=== PATIENT | female | born 1940 | race Caucasian/White ===

== ENCOUNTER 2019-01-22 12:03 | Emergency (ER) | payer MEDICARE, MEDICAID ==
[~2019-01-22] VITALS: Ht 152.4 cm; Wt 55.0 kg
[~2019-01-22 12:03] MED LIST: AMLO5TAB88 PO; B25; CETI10TA6; CRES10 PO; DOXA4TAB3 PO; HYDR25TA PO; HYDROCORTISONE; LOSA50TA41 PO; NEPHRO-VITE; NIFE60TA64 PO; OMEP20CA5 PO; POTA10CA42 PO; POTA10TA11 PO; ROSU20TA2 PO; TRIAMCINOLONE; WARF-67 PO; WARF1TAB46 PO; WARF2TAB57 PO; WARFARIN; [UNRECOGNIZED DRUG - OTHER]; amiodarone PO
[2019-01-22] MEDS ORDERED: HYDROCODONE/ACETAMINOPHEN 5/325MG TABLET PO ONE (12:45)
[2019-01-22] MEDS ORDERED: NAPROXEN 375MG TABLET PO ONE (12:45)
[2019-01-22 13:02] LABS: HEMATOCRIT. 41.4 % (36.0-48.0); MEAN CORPUSCULAR VOLUME 88.7 fL (81.0-99.0); MEAN PLATELET VOLUME 8.2 fl (7.4-10.4); PLATELET 180 x1000/uL (130-400); RED BLOOD CELL COUNT 4.67 mill/uL (4.2-5.4); RED CELL DISTRIBUTION WIDTH 14.1 % (11.6-14.6)
[2019-01-22 13:09] LABS: CHLORIDE 108 mEq/L (98-107)
[2019-01-22 13:17] LABS: INR 1.3; PARTIAL THROMBOPLASTIN TIME 34.8 sec (23.4-31.0)
[2019-01-22 13:26] LABS: ATYPICAL LYMPHOCYTES 1
[2019-01-22 13:27] LABS: PLATELET ESTIMATE NORMAL
[2019-01-22 15:29] VITALS: BP 151/93
== END 2019-01-22 15:31 | disposition home or self-care (01) ==
LOC: ER 12:03 → MERGE 12:03 → ER 15:31
DX: S16.1XXA Strain of muscle, fascia and tendon at neck level, initial encounter (principal); M79.18 Myalgia, other site; I11.9 Hypertensive heart disease without heart failure; E78.00 Pure hypercholesterolemia, unspecified; X58.XXXA Exposure to other specified factors, initial encounter; Y93.89 Activity, other specified; Y92.9 Unspecified place or not applicable; Z88.6 Allergy status to analgesic agent; Z95.0 Presence of cardiac pacemaker; Z79.01 Long term (current) use of anticoagulants
CPT/HCPCS: 36415; 99283

== ENCOUNTER 2019-02-14 14:38 | Emergency (ER) | payer MEDICARE, MEDICAID ==
[~2019-02-14] VITALS: Ht 152.4 cm; Wt 45.0 kg
[2019-02-14] MEDS ORDERED: SODIUM CHLORIDE 0.9% 1000ML BAG (SEPSIS BOLUS) IV ONE (17:15)
[2019-02-14 17:35] LABS: HEMOGLOBIN. 15.1 g/dL (12.0-16.0); MEAN CORPUSCULAR HEMOGLOBIN 29.6 pg (28.0-32.0); MEAN CORPUSCULAR VOLUME 88.3 fL (81.0-99.0); MEAN PLATELET VOLUME 8.9 fl (7.4-10.4); PLATELET 170 x1000/uL (130-400); RED BLOOD CELL COUNT 5.09 mill/uL (4.2-5.4); RED CELL DISTRIBUTION WIDTH 14.5 % (11.6-14.6)
[2019-02-14 17:37] LABS: CHLORIDE 105 mEq/L (98-107)
[2019-02-14 17:45] LABS: INR 3.5; PROTHROMBIN TIME 33.7 sec (9.6-11.0)
[2019-02-14 18:03] LABS: PLATELET ESTIMATE NORMAL
[2019-02-14 18:25] LABS: CLARITY URINE CLEAR (CLEAR); COLOR URINE YELLOW (YELLOW); KETONES URINE NEGATIVE (NEGATIVE); LEUKOCYTE ESTERASE URINE 2+ (NEGATIVE); NITRITE URINE NEGATIVE (NEGATIVE); OCCULT BLOOD URINE NEGATIVE (NEGATIVE); PH URINE 5.5 (4.5-8.0); PROTEIN URINE NEGATIVE (NEGATIVE); SPECIFIC GRAVITY URINE 1.008 (1.005-1.030); UROBILINOGEN URINE 0.2 E.U./dL (0.2-1.0)
[2019-02-14] MEDS ORDERED: ACETAMINOPHEN 500MG TABLET PO ONE (19:30)
[2019-02-14 21:05] VITALS: BP 150/84
== END 2019-02-14 21:17 | disposition home or self-care (01) ==
LOC: ER 14:38
DX: R05 Cough (principal); J02.9 Acute pharyngitis, unspecified; R50.9 Fever, unspecified; E78.00 Pure hypercholesterolemia, unspecified; I10 Essential (primary) hypertension; Z95.0 Presence of cardiac pacemaker; Z98.890 Other specified postprocedural states; Z79.899 Other long term (current) drug therapy; Z88.6 Allergy status to analgesic agent
CPT/HCPCS: 36415; 71045; 80053; 81003; 83605; 84145; 84484; 85025; 85610; 85730; 87040; 87077; 87086; 93005; 99284; J7030; J7040

== ENCOUNTER 2019-04-15 10:35 | Inpatient (IN) | payer MEDICARE, MEDICAID ==
[~2019-04-15] VITALS: Ht 134.6 cm; Wt 47.7 kg
[~2019-04-15 10:35] MED LIST changes: +OMEP20CA14 PO; -OMEP20CA5 PO
[2019-04-15] MEDS ORDERED: SODIUM CHLORIDE 0.9% 1,000 ML IV ONE (15:55)
[2019-04-15] MEDS ORDERED: LIDOCAINE HCL/PF 1% 10 MG/ML 5ML VIAL IJ ONE (16:15)
[2019-04-15] MEDS ORDERED: MORPHINE SULFATE 2 MG/ML CPJ (NOT FOR IM USE) IV ONE (16:15)
[2019-04-15 16:43] LABS: BASOPHILS % 0.5 % (0.0-2.0); EOSINOPHILS % 0.4 % (0.0-5.0); HEMATOCRIT. 40.9 % (36.0-48.0); HEMOGLOBIN. 13.9 g/dL (12.0-16.0); LYMPHOCYTES % 9.2 % (20.0-50.0); MEAN CORPUSCULAR VOLUME 88.1 fL (81.0-99.0); MEAN PLATELET VOLUME 8.5 fl (7.4-10.4); MONOCYTES % 13.4 % (2.0-8.0); NEUTROPHILS % 76.5 % (40.0-76.0); PLATELET 180 x1000/uL (130-400); RED BLOOD CELL COUNT 4.64 mill/uL (4.2-5.4); RED CELL DISTRIBUTION WIDTH 15.3 % (11.6-14.6)
[2019-04-15 16:46] LABS: CHLORIDE 108 mEq/L (98-107)
[2019-04-15 16:48] LABS: INR 2.2; PROTHROMBIN TIME 21.5 sec (9.6-11.0)
[2019-04-15] MEDS ORDERED: VANCOMYCIN 1 G PREMIX 200 ML IV ONE (17:00)
[2019-04-15] MEDS ORDERED: CEFEPIME 2,000 MG in DEXT 5% WATER 100 ML IV ONE (17:00)
[2019-04-15] MEDS ORDERED: ACETAMINOPHEN 325MG TABLET PO ONE (17:15)
[2019-04-15 18:20] LABS: CLARITY URINE CLEAR (CLEAR); COLOR URINE DARK YELLOW (YELLOW); KETONES URINE NEGATIVE (NEGATIVE); LEUKOCYTE ESTERASE URINE NEGATIVE (NEGATIVE); NITRITE URINE NEGATIVE (NEGATIVE); OCCULT BLOOD URINE TRACE (NEGATIVE); PH URINE 5.5 (4.5-8.0); PROTEIN URINE NEGATIVE (NEGATIVE); SPECIFIC GRAVITY URINE 1.021 (1.005-1.030)
[2019-04-15] MEDS ORDERED: ONDANSETRON HCL 4MG/2ML INJ IV PRN (19:30)
[2019-04-15] MEDS ORDERED: MAGNESIUM HYDROXIDE 400MG/5ML 30ML UDC PO PRN (19:30)
[2019-04-15] MEDS ORDERED: MAGNESIUM/ALUMINUM HYDROXIDE/SIMETHICONE 30ML UDC PO PRN (19:30)
[2019-04-15] MEDS ORDERED: DIPHENHYDRAMINE 50MG/ML VIAL IV PRN (19:30)
[2019-04-15] MEDS ORDERED: HYDROCODONE/ACETAMINOPHEN 5/325MG TABLET PO PRN (19:30)
[2019-04-15] MEDS ORDERED: POTASSIUM CHLORIDE 20MEQ TABLET SR PO ONE (19:30)
[2019-04-15] MEDS ORDERED: CLONIDINE 0.1MG TABLET PO PRN (19:30)
[2019-04-15] MEDS ORDERED: GUAIFENESIN 200MG/10ML SUGAR FREE UDC PO PRN (19:30)
[2019-04-15] MEDS ORDERED: VANCOMYCIN 1 G PREMIX 200 ML IV NR (19:30)
[2019-04-15] MEDS ORDERED: ACETAMINOPHEN 325MG TABLET PO PRN (19:30)
[2019-04-15] MEDS ORDERED: MVI, ADULT NO.1 10 ML, FOLIC ACID 1 MG, THIAMINE HCL 100 MG in SODIUM CHLORIDE 0.9% 1,0... IV SCH ×4 (20:00)
[2019-04-15 23:35] VITALS: BP 135/37
[2019-04-16] VITALS: BP 135/37
[2019-04-16] MEDS ORDERED: WARFARIN SODIUM 1MG TABLET PO NR (02:00)
[2019-04-16 04:00] VITALS: BP 108/42
[2019-04-16] MEDS: OMEPRAZOLE 20MG CAPSULE EXTENDED RELEASE PO SCH (06:11)
[2019-04-16 06:41] LABS: INR 1.8; PROTHROMBIN TIME 18.1 sec (9.6-11.0)
[2019-04-16 06:51] LABS: HEMATOCRIT. 36.9 % (36.0-48.0); HEMOGLOBIN. 12.3 g/dL (12.0-16.0); MEAN CORPUSCULAR HEMOGLOBIN 29.7 pg (28.0-32.0); MEAN CORPUSCULAR VOLUME 89.3 fL (81.0-99.0); MEAN PLATELET VOLUME 8.9 fl (7.4-10.4); PLATELET 156 x1000/uL (130-400); RED BLOOD CELL COUNT 4.14 mill/uL (4.2-5.4); RED CELL DISTRIBUTION WIDTH 15.5 % (11.6-14.6)
[2019-04-16 08:00] VITALS: BP 142/59
[2019-04-16 08:04] LABS: CHLORIDE 116 mEq/L (98-107)
[2019-04-16] MEDS ORDERED: DOXA4TAB3 MT (08:27)
[2019-04-16] MEDS ORDERED: FOLI-43 MT (08:28)
[2019-04-16] MEDS: LOSARTAN POTASSIUM 50 MG TABLET PO SCH (09:19)
[2019-04-16 12:00] VITALS: BP_SYST 102; BP_SYST 148; BP_DIAS 58; BP_DIAS 60
[2019-04-16 14:44] LABS: PLATELET ESTIMATE NORMAL
[2019-04-16] MEDS ORDERED: MAGNESIUM 1 G PREMIX 100 ML IV SCH (15:00)
[2019-04-16 16:00] VITALS: BP 131/52
[2019-04-16] MEDS ORDERED: WARFARIN SODIUM 1MG TABLET PO SCH (18:00)
[2019-04-16 20:25] VITALS: BP 136/71
[2019-04-17] VITALS: BP 144/46
[2019-04-17 04:00] VITALS: BP 146/63
[2019-04-17] MEDS ORDERED: SODIUM CHLORIDE 0.9% INJ 3ML FLUSH IVF SCH (06:00)
[2019-04-17] MEDS: OMEPRAZOLE 20MG CAPSULE EXTENDED RELEASE PO SCH (06:17)
[2019-04-17 06:56] LABS: INR 1.6; PROTHROMBIN TIME 16.1 sec (9.6-11.0)
[2019-04-17 08:00] VITALS: BP 133/40
[2019-04-17] MEDS: LOSARTAN POTASSIUM 50 MG TABLET PO SCH (08:09)
[2019-04-17 12:27] VITALS: BP 136/50
[2019-04-17 13:47] VITALS: BP 136/50
[2019-04-17] MEDS ORDERED: WARFARIN SODIUM 3MG TABLET PO NR (18:00)
== END 2019-04-17 14:20 | disposition home or self-care (01) | DRG 552 ==
LOC: ER 10:35 → 6WST 17:45 → EDBEDREQ 18:04 → EDBEDREQSVC 18:04 → EDBEDREQTM 18:04 → ENRESERV 22:32
PROVIDERS: ADMIT Internal Medicine; ATTEND Internal Medicine
DX: M47.812 Spondylosis without myelopathy or radiculopathy, cervical region (principal); I48.21 Permanent atrial fibrillation; E78.00 Pure hypercholesterolemia, unspecified; E87.6 Hypokalemia; M19.90 Unspecified osteoarthritis, unspecified site; I10 Essential (primary) hypertension; I25.10 Atherosclerotic heart disease of native coronary artery without angina pectoris; K21.9 Gastro-esophageal reflux disease without esophagitis; E78.5 Hyperlipidemia, unspecified; Z95.2 Presence of prosthetic heart valve; Z95.1 Presence of aortocoronary bypass graft; Z95.810 Presence of automatic (implantable) cardiac defibrillator; Z79.899 Other long term (current) drug therapy; Z88.8 Allergy status to other drugs, medicaments and biological substances; Z86.73 Personal history of transient ischemic attack (TIA), and cerebral infarction without residual deficits; Z79.01 Long term (current) use of anticoagulants
CPT/HCPCS: 36415; 71045; 80048; 80053; 81003; 83605; 83735; 84145; 84484; 85025; 93005; 99291; J0692; J2270; J3370; J3411; J3475; J3490; J7030; J7060

== ENCOUNTER 2019-05-03 16:02 | Emergency (ER) | payer MEDICARE, MEDICAID ==
[~2019-05-03] VITALS: Ht 144.8 cm; Wt 45.3 kg
[~2019-05-03 16:02] MED LIST changes: -CRES10 PO; +DOXA4TAB3 MT; +FOLI-43 MT; -POTA10CA42 PO; -WARF2TAB57 PO
[2019-05-03] MEDS ORDERED: ACETAMINOPHEN 325MG TABLET PO ONE (17:00)
[2019-05-03 17:21] LABS: BASOPHILS % 0.5 % (0.0-2.0); EOSINOPHILS % 1.7 % (0.0-5.0); HEMATOCRIT. 42.4 % (36.0-48.0); LYMPHOCYTES % 11.2 % (20.0-50.0); MEAN CORPUSCULAR HEMOGLOBIN 29.2 pg (28.0-32.0); MEAN CORPUSCULAR VOLUME 88.1 fL (81.0-99.0); MEAN PLATELET VOLUME 8.6 fl (7.4-10.4); MONOCYTES % 9.2 % (2.0-8.0); NEUTROPHILS % 77.4 % (40.0-76.0); PLATELET 217 x1000/uL (130-400); RED BLOOD CELL COUNT 4.81 mill/uL (4.2-5.4); RED CELL DISTRIBUTION WIDTH 15.4 % (11.6-14.6)
[2019-05-03 17:28] LABS: CHLORIDE 111 mEq/L (98-107)
[2019-05-03 17:37] LABS: PROTHROMBIN TIME 39.8 sec (9.6-11.0)
[2019-05-03 17:41] LABS: INR 4.1
[2019-05-03 21:30] VITALS: BP 149/72
== END 2019-05-03 22:45 | disposition home or self-care (01) ==
LOC: ER 16:02
DX: S00.03XA Contusion of scalp, initial encounter (principal); S00.81XA Abrasion of other part of head, initial encounter; W01.0XXA Fall on same level from slipping, tripping and stumbling without subsequent striking against object, initial encounter; Y93.9 Activity, unspecified; Y92.9 Unspecified place or not applicable; Z88.6 Allergy status to analgesic agent
CPT/HCPCS: 36415; 80053; 85025; 99284

== ENCOUNTER 2020-03-03 14:27 | Emergency (ER) | payer MEDICARE, MEDICAID ==
[~2020-03-03] VITALS: Ht 144.8 cm; Wt 43.2 kg
[2020-03-03 15:24] VITALS: BP 135/48
[2020-03-03] MEDS ORDERED: ACETAMINOPHEN 325MG TABLET PO ONE (15:45)
[2020-03-03 16:41] LABS: CHLORIDE 101 mEq/L (98-107)
[2020-03-03 16:42] LABS: HEMATOCRIT. 47.1 % (36.0-48.0); HEMOGLOBIN. 15.8 g/dL (12.0-16.0); MEAN CORPUSCULAR VOLUME 89.1 fL (81.0-99.0); PLATELET 154 x1000/uL (130-400); RED BLOOD CELL COUNT 5.29 mill/uL (4.2-5.4); RED CELL DISTRIBUTION WIDTH 15.1 % (11.6-14.6)
[2020-03-03 17:29] LABS: PLATELET ESTIMATE NORMAL
== END 2020-03-03 18:47 | disposition home or self-care (01) ==
LOC: ER 14:27
DX: J98.8 Other specified respiratory disorders (principal); M79.18 Myalgia, other site; I10 Essential (primary) hypertension; I25.2 Old myocardial infarction; Z95.0 Presence of cardiac pacemaker; Z79.899 Other long term (current) drug therapy
CPT/HCPCS: 36415; 71045; 80053; 83880; 84484; 85025; 93005; 99285